=== PATIENT | male | born 1975 | race Caucasian/White ===

== ENCOUNTER → 2020-12-07 | Outpatient (CLI) | payer OTHER ==
[2020-12-07 10:42] LABS: BASOPHILS % (AUTO) 0.5 % (0.0-2.0); EOSINOPHILS % (AUTO) 1.8 % (1.0-6.0); HEMATOCRIT 43.4 % (41-53); HEMOGLOBIN 15.1 g/dL (13.5-17.5); MEAN CORPUSCULAR HEMOGLOBIN 32.9 pg (26.0-34.0); MEAN CORPUSCULAR HGB CONC 34.8 G/dL (31.0-37.0); MEAN CORPUSCULAR VOLUME 95 fL (80-100); MONOCYTES # (AUTO) 0.4 K/uL (0.1-1.0); MONOCYTES % (AUTO) 6.9 % (2.0-9.0); NEUTROPHILS % (AUTO) 54.8 % (40.0-70.0); PLATELET COUNT (AUTO) 171 K/uL (150-450); RED BLOOD CELL COUNT(AUTO) 4.59 MIL/uL (4.50-5.90); RED CELL DISTRIBUTION WIDTH 12.8 % (11.5-14.5)
[2020-12-07 10:54] LABS: HEMOGLOBIN A1C 5.8 % (3.8-5.6)
[2020-12-07 11:03] LABS: BILIRUBIN,TOTAL 0.6 mg/dL (0.1-1.0); CHOL/HDL RATIO 5.3 (4.2-7.3); CREATININE 1.32 mg/dL (0.60-1.30); THYROID STIMULATING HORMONE 4.25 uIU/mL (0.36-3.74)
[2020-12-07 11:50] LABS: FOLATE SERUM 19.2 ng/mL (5.4-)
== END | disposition home or self-care (01) ==
LOC: EDSEX 08:02 → LABPV 08:02
PROVIDERS: ATTEND Legal Medicine
DX: Z00.00 Encounter for general adult medical examination without abnormal findings (principal)
CPT/HCPCS: 80053; 80061; 82306; 82607; 82746; 83036; 84443; 85025

== ENCOUNTER → 2020-12-14 | Outpatient (CLI) | payer OTHER | END | disposition home or self-care (01) | LOC: RADPV 10:38 | PROVIDERS: ATTEND Legal Medicine | DX: R06.09 Other forms of dyspnea (principal) | CPT/HCPCS: 71046 ==

== ENCOUNTER → 2021-03-18 | Outpatient (CLI) | payer OTHER ==
[2021-03-18 09:52] LABS: CHOL/HDL RATIO 4.5 (4.2-7.3)
[2021-03-18 10:06] LABS: HEMOGLOBIN A1C 5.9 % (3.8-5.6)
== END | disposition home or self-care (01) ==
LOC: LABPV 07:30
PROVIDERS: ATTEND Legal Medicine
DX: E78.5 Hyperlipidemia, unspecified (principal)
CPT/HCPCS: 80061; 83036

== ENCOUNTER → 2021-06-17 | Outpatient (CLI) | payer OTHER ==
[2021-06-17 12:33] LABS: BASOPHILS % (AUTO) 0.4 % (0.0-2.0); EOSINOPHILS % (AUTO) 1.7 % (1.0-6.0); HEMATOCRIT 42.2 % (41-53); LYMPHOCYTES # (AUTO) 1.2 K/uL (1.0-4.8); LYMPHOCYTES % (AUTO) 28.4 % (22.0-44.0); MEAN CORPUSCULAR HEMOGLOBIN 33.1 pg (26.0-34.0); MEAN CORPUSCULAR HGB CONC 35.5 G/dL (31.0-37.0); MEAN CORPUSCULAR VOLUME 93 fL (80-100); MONOCYTES # (AUTO) 0.3 K/uL (0.1-1.0); MONOCYTES % (AUTO) 7.6 % (2.0-9.0); NEUTROPHILS # (AUTO) 2.7 K/uL (1.8-7.7); NEUTROPHILS % (AUTO) 61.9 % (40.0-70.0); PLATELET COUNT (AUTO) 179 K/uL (150-450); RED BLOOD CELL COUNT(AUTO) 4.53 MIL/uL (4.50-5.90); RED CELL DISTRIBUTION WIDTH 13.1 % (11.5-14.5)
[2021-06-17 12:45] LABS: ALANINE AMINOTRANSFERASE 42 U/L (12-78); ALBUMIN 4.1 g/dL (3.4-5.0); ALKALINE PHOSPHATASE 83 U/L (46-116); ANION GAP 4 mmol/L (8-16); ASPARTATE AMINOTRANSFERASE 17 U/L (15-37); BILIRUBIN,TOTAL 0.3 mg/dL (0.1-1.0); CALCIUM, TOTAL 9.3 mg/dL (8.8-10.5); CARBON DIOXIDE 32 mmol/L (22-29); CHLORIDE 106 mmol/L (98-107); CHOL/HDL RATIO 4.4 (4.2-7.3); CHOLESTEROL 176 mg/dL (131-200); GLOMERULAR FILTR. RATE CALC > 60 mL/min (>60); GLUCOSE,RANDOM 111 mg/dL (70-110); HDL CHOLESTEROL 40 mg/dL (40-60); LDL CHOL (CALC.) 104 mg/dL (0-130); POTASSIUM 4.7 mmol/L (3.5-5.1); SODIUM SERUM 142 mmol/L (136-145); THYROID STIMULATING HORMONE 1.94 uIU/mL (0.36-3.74); TOTAL PROTEIN, SERUM 7.1 g/dL (6.4-8.2); TRIGLYCERIDES 162 mg/dL (15-150); UREA NITROGEN, BLOOD 15 mg/dL (7-18)
[2021-06-17 13:18] LABS: VITAMIN B12 LEVEL 375 pg/mL (211-911); VITAMIN D,TOTAL (25-0H) 29 ng/mL (30-100)
[2021-06-17 13:23] LABS: FOLATE SERUM > 24.0 ng/mL (5.4-)
[2021-06-17 13:31] LABS: HEMOGLOBIN A1C 5.7 % (3.8-5.6)
== END | disposition home or self-care (01) ==
LOC: LABPV 08:28
PROVIDERS: ATTEND Legal Medicine
DX: E78.5 Hyperlipidemia, unspecified (principal); E55.9 Vitamin D deficiency, unspecified; E03.9 Hypothyroidism, unspecified; R73.03 Prediabetes
CPT/HCPCS: 80053; 80061; 82306; 82607; 82746; 83036; 84443; 85025

== ENCOUNTER → 2021-11-28 | Outpatient (CLI) | payer OTHER ==
[2021-11-28 08:45] LABS: BASOPHILS % (AUTO) 0.5 % (0.0-2.0); EOSINOPHILS % (AUTO) 1.5 % (1.0-6.0); HEMATOCRIT 44.4 % (41-53); HEMOGLOBIN 15.3 g/dL (13.5-17.5); LYMPHOCYTES # (AUTO) 1.4 K/uL (1.0-4.8); LYMPHOCYTES % (AUTO) 27.8 % (22.0-44.0); MEAN CORPUSCULAR HEMOGLOBIN 32.6 pg (26.0-34.0); MEAN CORPUSCULAR HGB CONC 34.5 G/dL (31.0-37.0); MEAN CORPUSCULAR VOLUME 95 fL (80-100); MONOCYTES # (AUTO) 0.3 K/uL (0.1-1.0); MONOCYTES % (AUTO) 5.7 % (2.0-9.0); NEUTROPHILS # (AUTO) 3.2 K/uL (1.8-7.7); NEUTROPHILS % (AUTO) 64.5 % (40.0-70.0); PLATELET COUNT (AUTO) 191 K/uL (150-450); RED BLOOD CELL COUNT(AUTO) 4.69 MIL/uL (4.50-5.90); RED CELL DISTRIBUTION WIDTH 13.2 % (11.5-14.5)
[2021-11-28 08:52] LABS: HEMOGLOBIN A1C 5.9 % (3.8-5.6)
[2021-11-28 09:07] LABS: ALANINE AMINOTRANSFERASE 32 U/L (12-78); ALKALINE PHOSPHATASE 91 U/L (46-116); ANION GAP 5 mmol/L (8-16); ASPARTATE AMINOTRANSFERASE 14 U/L (15-37); BILIRUBIN,TOTAL 0.4 mg/dL (0.1-1.0); CALCIUM, TOTAL 8.7 mg/dL (8.8-10.5); CARBON DIOXIDE 30 mmol/L (22-29); CHLORIDE 103 mmol/L (98-107); CHOL/HDL RATIO 4.2 (4.2-7.3); CHOLESTEROL 195 mg/dL (131-200); GLOMERULAR FILTR. RATE CALC > 60 mL/min (>60); GLUCOSE,RANDOM 110 mg/dL (70-110); HDL CHOLESTEROL 46 mg/dL (40-60); LDL CHOL (CALC.) 113 mg/dL (0-130); POTASSIUM 4.5 mmol/L (3.5-5.1); SODIUM SERUM 138 mmol/L (136-145); THYROID STIMULATING HORMONE 1.65 uIU/mL (0.36-3.74); TRIGLYCERIDES 179 mg/dL (15-150); UREA NITROGEN, BLOOD 13 mg/dL (7-18)
[2021-11-28 09:18] LABS: FOLATE SERUM 21.9 ng/mL (5.4-)
== END | disposition home or self-care (01) ==
LOC: LABPV 07:56
PROVIDERS: ATTEND Legal Medicine
DX: E55.9 Vitamin D deficiency, unspecified (principal)
CPT/HCPCS: 80053; 80061; 82306; 82607; 82746; 83036; 84443; 85025

== ENCOUNTER 2024-12-07 07:06 | Day surgery (SDC) | payer OTHER ==
[~2024-12-07] VITALS: Ht 188 cm; Wt 99.5 kg
[~2024-12-07 07:06] MED LIST: ALBUTEROL SULFATE HFA 90 MCG/PUFF 8 GM INHALER IH ONE; GLYCOPYRROLATE 0.2 MG/ML VIAL ONE; PROPOFOL 1% ISO-OSM 1000 MG/100 ML BOTTLE ONE; SODIUM CHLORIDE 0.9% 1,000 ML ONE
[2024-12-07] MEDS: SODIUM CHLORIDE 0.9% 1,000 ML IV ONE (07:54)
[2024-12-07] MEDS ORDERED: OXYGEN THERAPY IH SCH (20:00)
== END 2024-12-07 10:40 | disposition home or self-care (01) ==
LOC: SURGERY 07:06
PROVIDERS: ATTEND Specialist
DX: Z12.11 Encounter for screening for malignant neoplasm of colon (principal); K63.5 Polyp of colon; F17.210 Nicotine dependence, cigarettes, uncomplicated; Z79.899 Other long term (current) drug therapy; Z98.890 Other specified postprocedural states
CPT/HCPCS: 45385; 88305; J3490; J2704; J7030; J3535

== ENCOUNTER → 2025-04-28 | Outpatient (CLI) | payer OTHER ==
[2025-04-28 09:02] LABS: PLATELET COUNT (AUTO) 214 K/uL (150-450); RED BLOOD CELL COUNT(AUTO) 4.52 MIL/uL (4.50-5.90); RED CELL DISTRIBUTION WIDTH 13.6 % (11.5-14.5); WHITE BLOOD COUNT (AUTO) 5.3 K/uL (4.5-11.0)
[2025-04-28 09:35] LABS: ASPARTATE AMINOTRANSFERASE 21 U/L (15-37); CALCIUM, TOTAL 8.6 mg/dL (8.8-10.5); CHOL/HDL RATIO 5.8 (4.2-7.3); CREATININE 1.02 mg/dL (0.60-1.30); GLOMERULAR FILTR. RATE CALC > 60 mL/min (>60); GLUCOSE,RANDOM 118 mg/dL (70-110); SODIUM SERUM 141 mmol/L (136-145); TOTAL PROTEIN, SERUM 6.9 g/dL (6.4-8.2); UREA NITROGEN, BLOOD 12 mg/dL (7-18); VITAMIN B12 LEVEL 319 pg/mL (211-911); VITAMIN D,TOTAL (25-0H) 22 ng/mL (30-100)
[2025-04-28 10:50] LABS: FOLATE SERUM > 24.0 ng/mL (5.4-)
== END | disposition home or self-care (01) ==
LOC: LABMN 08:39
PROVIDERS: ATTEND Legal Medicine
DX: E55.9 Vitamin D deficiency, unspecified (principal); R73.03 Prediabetes; R42 Dizziness and giddiness; G47.33 Obstructive sleep apnea (adult) (pediatric)
CPT/HCPCS: 80053; 80061; 82306; 82607; 82746; 83036; 84443; 85025